=== PATIENT | male | born 1970 ===

== ENCOUNTER 2025-05-20 21:07 | Emergency (ER) | payer OTHER ==
[~2025-05-20] VITALS: Ht 172.7 cm; Wt 72.6 kg
[2025-05-20] MEDS ORDERED: 0.9 % SODIUM CHLORIDE 1,000 ML IV STA (21:58)
[2025-05-20] MEDS ORDERED: FAMOTIDINE/PF 20 MG/2 ML VIAL IV STA (21:58)
[2025-05-20] MEDS ORDERED: MORPHINE SULFATE 4 MG/ML CARTRIDGE IV STA (21:59)
== END 2025-05-20 21:39 | disposition left against medical advice (07) ==
LOC: ER 21:08
DX: R10.819 Abdominal tenderness, unspecified site (principal); K56.699 Other intestinal obstruction unspecified as to partial versus complete obstruction